=== PATIENT | female | born 1980 | race Caucasian/White ===

== ENCOUNTER 2020-10-03 15:10 | Outpatient (REF) | payer BC, SELFPAY ==
--- NOTE | 2020-10-03 14:50 | PAPFT_PTH ---
PATIENT: Jacqueline Nelson LOC: [facility] U#:[id number] AGE/SX: 40/F ROOM: RE10/03/[address]: Rose Pastrana : 1980 BED: DIS: 10/03/2020 SPEC #: [id number] RECD: 10/03/20 17:44 STATUS: RUTH HALE #: [id number] MARIE: 10/03/20 14:[address]: Rose Pastrana DEPT: [facility], [facility] Cytology RECD BY: Yesica Thurston ENTERED: 10/03/20 17:44 SP TYPE: PAPFT OTHR DR: Slim Dia DO Tissues: 1 - CX/ENDOCX FOR PAP SMEARS Procedures: PAP THIN PREP/UVM Screening HPV DNA PROBE Comments: [id number]
== END 2020-10-03 15:11 | disposition home or self-care (01) ==
LOC: LBN 15:10
PROVIDERS: PCP Family Medicine; Visit Provider Obstetrics & Gynecology Gynecology
DX: Z12.4 Encounter for screening for malignant neoplasm of cervix (principal); Z11.51 Encounter for screening for human papillomavirus (HPV); Z00.00 Encounter for general adult medical examination without abnormal findings
CPT/HCPCS: 88142; 87624

== ENCOUNTER 2020-10-17 03:56 | Outpatient (CLI) | payer BC, SELFPAY ==
--- NOTE | 2020-10-17 15:36 | DI.MAMMO_ITS ---
EXAM: MAMMO SCREENING CLINICAL HISTORY: screening,Z12.39 TECHNIQUE: Mammograms were interpreted according to the usual protocol including computer analysis w [employer] CAD system, tomosynthesis and C-view imaging. COMPARISON: None. Baseline examination. FINDINGS: The breasts are composed of heterogeneously dense fibroglandular densities, Breast Density category C . There is motion on the left cc view. No suspicious masses or suspicious microcalcifications are seen. No skin thickening or abnormal axillary lymph nodes are seen. IMPRESSION: The patient should return for repeat left cc view due to motion. BI-RADS Cat 0 - Assessment Incomplete: Need additional imaging evaluation Yearly screening mammography is recommended. Breast Density Category C, heterogeneously Dense. The mammogram demonstrates the patient's breast tissue is dense. Dense breast tissue is very common a nd is not abnormal but dense breast tissue can make it harder to find cancer on a mammogram. Also, de nse breast tissue may increase breast cancer risk. This information about the result of the mammogram report was provided to the patient to raise their awareness. Use this report when you speak with the patient about their risks for breast cancer, which includes their family history. At that time, you may recommend additional screening tests (Ultrasound or MRI) as they might be useful based on their r isk. A negative radiographic report should not delay biopsy if a dominant or clinically suspicious mass is present. Up to ten percent of cancers are not identified on mammography. A negative report may reinforce clinical impression. Adenosis and dense breasts may obscure an underlying neoplasm. False positive reports average 6 to 10%.
== END 2020-10-17 04:16 ==
PROVIDERS: PCP Family Medicine; Visit Provider Obstetrics & Gynecology Gynecology
DX: Z12.31 Encounter for screening mammogram for malignant neoplasm of breast (principal)
CPT/HCPCS: 77063; 77067

== ENCOUNTER 2020-10-24 05:01 | Outpatient (CLI) | payer BC, SELFPAY ==
--- NOTE | 2020-10-24 11:15 | DI.MAMMO_ITS ---
EXAM: MG MAMMO SCREEN CALL BACK UNI CLINICAL HISTORY: F/U MAMMO, REPEAT VIEW FOR MOTION,LT CC TECHNIQUE: Mammograms were interpreted according to the usual protocol including computer analysis w [facility] CAD system, tomosynthesis and C-view imaging. COMPARISON: 17 October 2020 FINDINGS: The patient return for repeat left cc view due to motion on the initial exam. The breasts are composed of heterogeneously dense fibroglandular densities, Breast Density category C . No suspicious masses or suspicious microcalcifications are seen. No skin thickening or abnormal axillary lymph nodes are seen. There has been no significant change from prior exams. IMPRESSION: BI-RADS Category 1, Negative mammogram. Yearly screening mammography is recommended. Breast Density Category C, heterogeneously Dense. The mammogram demonstrates the patient's breast tissue is dense. Dense breast tissue is very common a nd is not abnormal but dense breast tissue can make it harder to find cancer on a mammogram. Also, de nse breast tissue may increase breast cancer risk. This information about the result of the mammogram report was provided to the patient to raise their awareness. Use this report when you speak with the patient about their risks for breast cancer, which includes their family history. At that time, you may recommend additional screening tests (Ultrasound or MRI) as they might be useful based on their r isk. A negative radiographic report should not delay biopsy if a dominant or clinically suspicious mass is present. Up to ten percent of cancers are not identified on mammography. A negative report may reinforce clinical impression. Adenosis and dense breasts may obscure an underlying neoplasm. False positive reports average 6 to 10%.
== END 2020-10-24 05:21 ==
PROVIDERS: PCP Family Medicine; Visit Provider Obstetrics & Gynecology Gynecology
DX: R92.8 Other abnormal and inconclusive findings on diagnostic imaging of breast (principal)
CPT/HCPCS: 77063; 77067

== ENCOUNTER 2022-10-01 00:42 | Outpatient (CLI) | payer BC, SELFPAY ==
--- NOTE | 2022-10-01 08:00 | DI.MAMMO_ITS ---
Exam(s) MAMMO SCREENING EXAM: MAMMO SCREENING CLINICAL HISTORY: screening TECHNIQUE: Mammograms were interpreted according to the usual protocol including computer analysis w [employer] CAD system, tomosynthesis and C-view imaging. COMPARISON: 2020 FINDINGS: The breasts are composed of heterogeneously dense fibroglandular densities, Breast Density category C . No suspicious masses or suspicious microcalcifications are seen. No skin thickening or abnormal axillary lymph nodes are seen. There has been no significant change from prior exams. IMPRESSION: BI-RADS Category 1, Negative mammogram. Yearly screening mammography is recommended. Breast Density Category C, heterogeneously Dense. The mammogram demonstrates the patient's breast tissue is dense. Dense breast tissue is very common a nd is not abnormal but dense breast tissue can make it harder to find cancer on a mammogram. Also, de nse breast tissue may increase breast cancer risk. This information about the result of the mammogram report was provided to the patient to raise their awareness. Use this report when you speak with the patient about their risks for breast cancer, which includes their family history. At that time, you may recommend additional screening tests (Ultrasound or MRI) as they might be useful based on their r isk. A negative radiographic report should not delay biopsy if a dominant or clinically suspicious mass is present. Up to ten percent of cancers are not identified on mammography. A negative report may reinforce clinical impression. Adenosis and dense breasts may obscure an underlying neoplasm. False positive reports average 6 to 10%.
== END 2022-10-01 01:02 ==
LOC: DI 00:42
PROVIDERS: PCP Family Medicine; Visit Provider Obstetrics & Gynecology Gynecology
DX: Z12.31 Encounter for screening mammogram for malignant neoplasm of breast (principal); R92.8 Other abnormal and inconclusive findings on diagnostic imaging of breast
CPT/HCPCS: 77063; 77067

== ENCOUNTER 2022-10-01 01:53 | Outpatient (CLI) | payer BC, SELFPAY ==
[2022-10-01 09:17] LABS: ALT 32 U/L (14-59); AST 19 U/L (15-37); Albumin 4.1 g/dL (3.4-5.0); Alkaline Phosphatase 69 U/L (46-116); Anion Gap 10.4 mmol/L (3-11); BUN 21 mg/dL (7-18); Bilirubin, Total 0.8 mg/dL (0.2-1.0); CO2 26.6 mmol/L (21.0-32.0); CREATININE 0.7 mg/dL (0.55-1.02); Calcium 9.1 mg/dL (8.5-10.1); Calculated LDL 166 mg/dL (<100); Chloride 103 mmol/L (98-107); Cholesterol 268 mg/dL (<200); Estimated GFR 109.98 (mL/min/1.73m2); Glucose 103 mg/dL (74-106); HDL Cholesterol 58 mg/dL (40-60); Potassium 3.9 mmol/L (3.5-5.1); Sodium 140 mmol/L (136-145); Total Protein 7.7 g/dL (6.4-8.2); Triglyceride 223 mg/dL (<150)
== END 2022-10-01 01:54 | disposition home or self-care (01) ==
LOC: LBO 01:53
PROVIDERS: PCP Family Medicine; Visit Provider Obstetrics & Gynecology Gynecology
DX: E78.5 Hyperlipidemia, unspecified (principal); Z00.00 Encounter for general adult medical examination without abnormal findings; Z83.438 Family history of other disorder of lipoprotein metabolism and other lipidemia
CPT/HCPCS: 36415; 80053; 80061

== ENCOUNTER 2022-11-12 14:52 | Outpatient (CLI) | payer BC, SELFPAY ==
--- NOTE | 2022-11-12 14:29 | DI.RAD_ITS ---
Exam(s) XR HIP RT COMPLETE AP PELVIS EXAM: XR HIP RT COMPLETE AP PELVIS CLINICAL HISTORY: R hip pain, evaluate for arthritis pain, M16.10. TECHNIQUE: 2D digital imaging was performed of the right hip. Two images were obtained. AP pelvis a nd lateral right hip views were obtained. COMPARISON: No exams were available for comparison FINDINGS: BONES: No acute fracture is present. No bony destructive lesion is seen. JOINTS: No dislocation present. The joint space is well maintained. SOFT TISSUE: There is soft tissue calcifications adjacent to the greater trochanter which may represe nt tendinous calcifications. IMPRESSION: Calcific tendinitis of the right hip. DATA REPOSITORY: RADIATION DOSE DELIVERED:
== END 2022-11-12 15:12 ==
LOC: DI 14:52
PROVIDERS: PCP Family Medicine; Visit Provider Family Medicine
DX: M16.10 Unilateral primary osteoarthritis, unspecified hip (principal); M65.28 Calcific tendinitis, other site
CPT/HCPCS: 73502

== ENCOUNTER 2022-11-12 14:54 | Outpatient (CLI) | payer BC, SELFPAY ==
[2022-11-12 15:19] LABS: MCHC 34.2 % (32.0-36.0); MCV 88 fL (80-95); MPV 10.9 fL (8.0-11.0); Platelet Count 284 10^3/uL (130-400); RBC 4.34 10^6/uL (3.93-5.22); RDW 12.5 % (11.7-14.6); RDW-SD 40.4 fL; WBC 7.95 10^3/uL (4.4-10.8)
== END 2022-11-12 14:55 | disposition home or self-care (01) ==
LOC: LBO 14:54
PROVIDERS: PCP Family Medicine; Visit Provider Family Medicine
DX: R23.3 Spontaneous ecchymoses (principal)
CPT/HCPCS: 36415; 85027

== ENCOUNTER 2022-11-26 01:47 | Outpatient (CLI) | payer BC, SELFPAY ==
[2022-11-26 10:47] LABS: TSH (W/Ref FT4) 1.13 uIU/mL (0.36-3.74)
[2022-11-26 11:00] LABS: Vitamin D 25 Total 20.7 ng/mL (30-100)
[2022-11-29 10:02] LABS: Antimullerian Hormone 2.4 ng/mL (0.03-5.5)
[2022-11-29 10:54] LABS: Measles IgG Antibody Positive (See Note)
[2022-11-29 11:25] LABS: Rubella IgG Ab (UVM) Positive (See Note)
== END 2022-11-26 01:48 | disposition home or self-care (01) ==
LOC: LBO 01:48
PROVIDERS: PCP Family Medicine; Visit Provider Obstetrics & Gynecology Reproductive Endocrinology
DX: Z13.21 Encounter for screening for nutritional disorder (principal); Z31.41 Encounter for fertility testing
CPT/HCPCS: 36415; 82306; 83520; 84443; 86762; 86765

== ENCOUNTER 2023-10-04 11:59 | Outpatient (CLI) | payer BC, SELFPAY ==
--- NOTE | 2023-10-04 11:45 | RT.EKG_ITS ---
APPROVED REPORT Exam: Resting ECG Reason for Exam: Chest discomfort Patient Location: O HR:78 bpm ECG Measurements Heart Rate 78 AXIS ID 154 P 255 QRSd 77 QRS 265 QT 371 T -84 QTc 423 Conclusion Sinus or ectopic atrial rhythm...P axis (-45,135) Left anterior fascicular block...axis(240,-40), init forces inf Low voltage, extremity leads...all extremity leads <0.5mV Nonspecific T abnormalities, inferior leads...T <-0.10mV, II III aVF Baseline wander in lead(s) V6
== END 2023-10-04 12:00 | disposition home or self-care (01) ==
LOC: DI.KIM 12:01
PROVIDERS: PCP Family Medicine; Visit Provider Family Medicine
DX: R00.2 Palpitations (principal)
CPT/HCPCS: 93010

== ENCOUNTER 2023-10-21 13:43 | Outpatient (CLI) | payer BC, SELFPAY ==
--- NOTE | 2023-10-21 13:30 | RT.EKG_ITS ---
APPROVED REPORT Exam: Resting ECG Reason for Exam: baseline Patient Location: O HR:75 bpm ECG Measurements Heart Rate 75 AXIS OH 155 P 80 QRSd 80 QRS 57 QT 386 T 45 QTc 432 Conclusion Sinus rhythm...normal P axis, V-rate 50- 99 Normal Electrocardiogram
== END 2023-10-21 13:44 | disposition home or self-care (01) ==
LOC: DI.CARD 13:44
PROVIDERS: PCP Family Medicine; Visit Provider Internal Medicine Cardiovascular Disease
DX: Z82.49 Family history of ischemic heart disease and other diseases of the circulatory system (principal); Z13.6 Encounter for screening for cardiovascular disorders
CPT/HCPCS: 93010

== ENCOUNTER 2024-04-05 01:08 | Outpatient (CLI) | payer BC, SELFPAY ==
--- NOTE | 2024-04-05 06:30 | ETT_ITS ---
APPROVED REPORT Exam: Exercise Treadmill Patient Location: Out-Patient Room/Bed: Stress Nurse: Kalie Finney RN; Rita Lucero RN Ordering Provider:JAYCE ANA PAULAPETROS, Contact Number: [phone] BMI: 24.68 Baseline Rhythm: Sinus Rhythm Indications: chest pressure, family hx Medical History Medical History: migraines, HLD Cardiac Medications: aspirin, excedrin migraine, thyroiditis Allergies: bárbara, pravastatin, atorvastatin, rosuvastatin, flu vaccine, covid vaccine Cardiac Risk Factors: family history, HLD Previous Cardiac Procedures: none Pretest Chest Pain Characteristics: No chest pain Exercise History: Physically active Physical Disabilities: none Lung Sounds: Clear to auscultation Heart Sounds: Regular Stress Test Details Test: Exercise stress testing was performed using a Lasha protocol. Rest Stress HR Resting HR Supine: 77 bpm Max Heart Rate (APMHR): 176 bpm Resting HR Standin bpm Target HR (85% APMHR): 150 bpm Max HR Achieved: 176 bpm % of APMHR: 100 Recovery HR: 97 bpm HR response to stress: Normal HR response to stress BP Resting BP Supine: 128/82 mmHg Resting BP Standin/76 mmHg Max BP: 162/84 mmHg Recovery BP: 126/70 mmHg BP response to stress: Normal blood pressure response to stress. ECG Resting ECG: Sinus Rhythm Ectopy: none Stress ECG: Sinus Tachycardia ST Change: No significant ST segment changes noted Arrhythmia: None Recovery ECG: Sinus Rhythm Recovery ST Change: No significant ST segment changes noted Recovery Arrhythmia: None Clinical Reason for Termination: Target HR Achieved Stress Symptoms: none Exercise duration: 09 min26 sec Highest Stage Reached: Stage 4: 4.2 mph at 16% grade. Exercise capacity: 10.85 METs Angina Score: None Bell Treadmill Score: 8.2 Rate Pressure Product: [id number] Stress ECG Conclusion 1. Resting electrocardiogram was normal 2. Patient exercised on the Lasha protocol and completed workload of 10.85 METS 3. Normal heart rate and blood pressure response to exercise. The patient achieved 100% of predicted heart rate for age 4. There was no electrocardiographic evidence of myocardial ischemia 5. There were no dysrhythmias Bell Treadmill Score is 8.2 which is Low risk. Stress Test Summary STAGE Time (mins) Speed (mph) Grade (%) HR BP SpO2 SYMPTOMS METS Supine 77 128/82 99 Standing 70 116/76 99 1 3 1.7 10 103 120/72 4.5 2 6 2.5 12 126 138/74 98 7 3 9 3.4 14 164 162/84 10 4 12 4.2 16 174 13 1 min recovery 145 156/70 98 3 min recovery 110 146/66 6 min recovery 98 126/70
== END 2024-04-05 01:28 ==
LOC: DI 01:09
PROVIDERS: PCP Family Medicine; Visit Provider Family Medicine
DX: R07.89 Other chest pain (principal)
CPT/HCPCS: 93017

== ENCOUNTER 2025-01-11 01:10 | Outpatient (CLI) | payer BC, SELFPAY ==
[2025-01-11 10:09] LABS: Hemoglobin A1C 5.3 % (<5.7)
[2025-01-11 10:53] LABS: ALT 22 U/L (14-59); AST 20 U/L (15-37); Albumin 3.7 g/dL (3.4-5.0); Alkaline Phosphatase 73 U/L (46-116); BUN 13 mg/dL (7-18); CREATININE 0.8 mg/dL (0.55-1.02); Calcium 9.1 mg/dL (8.5-10.1); Chloride 102 mmol/L (98-107); Estimated GFR 92.54 (mL/min/1.73m2); Glucose 99 mg/dL (74-106); Potassium 4.2 mmol/L (3.5-5.1); Sodium 139 mmol/L (136-145); TSH (W/Ref FT4) 1.29 uIU/mL (0.36-3.74); Total Protein 7.1 g/dL (6.4-8.2)
[2025-01-16 17:56] LABS: Apolipoprotein B, Serum 114 mg/dL (48-124); Beta VLDL Cholesterol Not Detected mg/dL (<15); Beta VLDL Triglycerides Not Detected mg/dL (<15); Cholesterol, Total, CDC 213 mg/dL; Chylomicron Cholesterol Not Detected; Chylomicron Triglycerides Not Detected; HDL Cholesterol, CDC 47 mg/dL (>=50); LDL Cholesterol 133 mg/dL; LDL Triglycerides 39 mg/dL (<=50); Lp(a) Cholesterol <5 mg/dL (<5); LpX Not detected; Triglycerides, CDC 167 mg/dL; VLDL Cholesterol 33 mg/dL (<30); VLDL Triglycerides 106 mg/dL (<120)
== END 2025-01-11 01:11 | disposition home or self-care (01) ==
PROVIDERS: PCP Family Medicine; Referring Provider Family Medicine; Visit Provider Family Medicine
DX: E78.5 Hyperlipidemia, unspecified (principal); Z82.49 Family history of ischemic heart disease and other diseases of the circulatory system; E04.1 Nontoxic single thyroid nodule; Z83.3 Family history of diabetes mellitus
CPT/HCPCS: 36415; 80053; 80061; 82172; 82664; 83036; 84443